=== PATIENT | female | born 1955 | race Caucasian/White ===

== ENCOUNTER 2016-09-28 08:25 | Emergency (ER) | payer MEDICAID ==
[2016-09-28 08:43] VITALS: BMI 38.0
[2016-09-28 08:48] VITALS: TEMP 97.8; O2SAT 97
--- NOTE | 2016-09-28 09:29 | C.PDOC ---
History Of Present Illness 61 y/o female pmhx diabetes, asthma and multiple other problems presents to the ED with complains of pain and swelling to right foot. Pt reports 2 weeks ago, after wearing sneakers she noticed abrasion to top of right foot which gradually worsened, turned into a sore with scab, tenderness and redness. Pt also states she generally doesn't feel well with complains of dry throat. Diabetes uncontrolled despite taking medications. Pt seen by PMD given antibiotics for throat infection. Denies fever, chills, nausea, vomiting, headache, chest pain, SOB or any other complaints. Time Seen by Provider: 09/28/16 09:08 Chief Complaint (Nursing): Lower Extremity Problem/Injury History Per: Patient History/Exam Limitations: no limitations Onset/Duration Of Symptoms: Days Current Symptoms Are (Timing): Worse Severity: Moderate Recent travel outside of the [place]: No Past Medical History Reviewed: Historical Data, Nursing Documentation, Vital Signs Vital Signs: Last Vital Signs Temp 97.8 F 09/28/16 08:43 Pulse 72 09/28/16 10:01 Resp 18 09/28/16 10:01 BP 128/72 09/28/16 10:01 Pulse Ox 97 09/28/16 10:01 - Medical History PMH: Anxiety, Arthritis, Asthma, Diabetes, Gastritis, Hypercholesterolemia Surgical History: Appendectomy - [facility] Procedures ENDOSC POLYPECTOMY OF LG INTEST (02/11/14) ESOPHAGOGASTRODUODENOSCOPY [EGD] W/CLOSED BIOPSY (02/11/14) INJECT/INFUSE NEC (08/27/14) PHYSICAL THERAPY NEC (01/31/14) Family History: States: Unknown Family Hx - Social History Hx Tobacco Use: No Hx Alcohol Use: No Hx Substance Use: No - Immunization History Hx Tetanus Toxoid Vaccination: No Hx Influenza Vaccination: No Hx Pneumococcal Vaccination: No Review Of Systems Except As Marked, All Systems Reviewed And Found Negative. Constitutional: Negative for: Fever, Chills ENT: Positive for: Other (dry throat) Cardiovascular: Negative for: Chest Pain Respiratory: Negative for: Shortness of Breath Gastrointestinal: Negative for: Nausea, Vomiting Musculoskeletal: Positive for: Other (pain and swelling to top of right foot) Neurological: Negative for: Headache Physical Exam - Physical Exam Appears: Non-toxic, No Acute Distress Skin: Warm, Dry, No Rash Head: Atraumatic, Normacephalic Oral Mucosa: Moist Throat: Normal, No Erythema, No Exudate Neck: Normal, Normal ROM, Supple Chest: Symmetrical Cardiovascular: Rhythm Regular, No Murmur Respiratory: Normal Breath Sounds, No Rales, No Rhonchi, No Wheezing Gastrointestinal/Abdominal: Normal Exam, Soft, No Tenderness, Other (obese) Extremity: Normal ROM, Capillary Refill (<2 seconds), Other (Right foot with 1x1 cm round lesion with scab and surrounding erythema and tenderness) Pulses: Left Dorsalis Pedis: Normal, Right Dorsalis Pedis: Normal Neurological/Psych: Oriented x3, Normal Speech, Normal Motor, Normal Sensation ED Course And Treatment O2 Sat by Pulse Oximetry: 97 (room air) Pulse Ox Interpretation: Normal Medical Decision Making Medical Decision Making: Prescribed keflex and instructed patient to follow up with PMD. Disposition Counseled Patient/Family Regarding: Diagnosis, Need For Followup, Rx Given - Disposition Referrals: Roberto Medrano MD [Medical Doctor] - Disposition: HOME/ ROUTINE Disposition Time: 09:29 Condition: GUARDED Prescriptions: Cephalexin [Keflex] 500 mg PO QID #40 capsule Instructions: Diabetic Foot Care (DC) Forms: General Discharge Instructions - POA Present On Arrival: None - Clinical Impression Clinical Impression: Hyperglycemia, Right foot infection - Scribe Statement The provider has reviewed the documentation as recorded by the Daryn Mortensen Provider Attestation: All medical record entries made by the Stefanoibkeeley were at my direction and personally dictated by me. I have reviewed the chart and agree that the record accurately reflects my personal performance of the history, physical exam, medical decision making, and the department course for this patient. I have also personally directed, reviewed, and agree with the discharge instructions and disposition.
[2016-09-28 10:01] VITALS: BP 128/72; PULSE 72; RESP 18
== END 2016-09-28 10:02 | disposition home or self-care (01) ==
LOC: C.ER 08:25
DX: E11.65 Type 2 diabetes mellitus with hyperglycemia (principal); L08.9 Local infection of the skin and subcutaneous tissue, unspecified

== ENCOUNTER 2016-10-24 11:58 | Emergency (ER) | payer MEDICAID ==
[2016-10-24 11:58] VITALS: BMI 38.0
[2016-10-24 12:23] VITALS: BP 123/84; PULSE 81; TEMP 98.2; O2SAT 97
[2016-10-24 13:13] LABS: RBC URINE < 1 /hpf (0-3); URINE BILIRUBIN NEGATIVE (NEGATIVE); URINE BLOOD NEGATIVE (NEGATIVE); URINE COLOR Yellow (YELLOW); URINE GLUCOSE (UA) NORMAL (Normal); URINE KETONE NEGATIVE (NEGATIVE); URINE LEUKOCYTE ESTERASE TRACE Leu/uL (Negative); URINE PROTEIN NEGATIVE (NEGATIVE); URINE UROBILINOGEN NORMAL mg/dL (0.2-1.0); WBC URINE 3 /hpf (0-5)
--- NOTE | 2016-10-24 13:20 | C.PDOC ---
History Of Present Illness 61 y/o female presents to the ED for evaluation of increased urinary frequency which began this morning. Patient is s/p a pelvic ultrasound. Patient notes her symptoms resolved prior to ED arrival. She denies fever, chills, back pain, abdominal pain, dysuria. Time Seen by Provider: 10/24/16 12:41 Chief Complaint (Nursing): Female Genitourinary History Per: Patient History/Exam Limitations: no limitations Onset/Duration Of Symptoms: Hrs Current Symptoms Are (Timing): Better Associated Symptoms: Urinary Symptoms (+urinary frequency ). denies: Fever, Chills, Back Pain Additional History Per: Patient Past Medical History Reviewed: Historical Data, Nursing Documentation, Vital Signs Vital Signs: Last Vital Signs Temp 98.2 F 10/24/16 12:23 Pulse 81 10/24/16 12:23 Resp 18 10/24/16 13:23 BP 123/84 10/24/16 12:23 Pulse Ox 97 10/24/16 16:55 - Medical History PMH: Anxiety, Arthritis, Asthma, Diabetes, Gastritis, Hypercholesterolemia Denies: Chronic Kidney Disease Surgical History: Appendectomy - [facility] Procedures ENDOSC POLYPECTOMY OF LG INTEST (02/11/14) ESOPHAGOGASTRODUODENOSCOPY [EGD] W/CLOSED BIOPSY (02/11/14) INJECT/INFUSE NEC (08/27/14) PHYSICAL THERAPY NEC (01/31/14) Family History: States: Unknown Family Hx - Social History Hx Tobacco Use: No Hx Alcohol Use: No Hx Substance Use: No - Immunization History Hx Tetanus Toxoid Vaccination: No Hx Influenza Vaccination: No Hx Pneumococcal Vaccination: No Review Of Systems Except As Marked, All Systems Reviewed And Found Negative. Constitutional: Negative for: Fever, Chills Gastrointestinal: Negative for: Abdominal Pain Genitourinary: Positive for: Frequency. Negative for: Dysuria Musculoskeletal: Negative for: Back Pain Physical Exam - Physical Exam Appears: Non-toxic, No Acute Distress, Other (+obese) Skin: Normal Color, Warm, Dry Eye(s): bilateral: Normal Inspection Oral Mucosa: Moist Neck: Supple Chest: Symmetrical Cardiovascular: Rhythm Regular Respiratory: Normal Breath Sounds Gastrointestinal/Abdominal: Soft, No Tenderness, No Guarding, No Rebound Back: Normal Inspection Extremity: Normal ROM, Capillary Refill (less than 2 seconds ) Neurological/Psych: Normal Speech, Normal Cognition Gait: Steady ED Course And Treatment - Laboratory Results Urine POC: Negative O2 Sat by Pulse Oximetry: 97 (on RA) Pulse Ox Interpretation: Normal Progress Note: UA ordered and reviewed. Medical Decision Making Medical Decision Making: mild urinary frequency after vaginal US this AM no frequency now, no UTI on UA Disposition Doctor Will See Patient In The: Office Counseled Patient/Family Regarding: Studies Performed, Diagnosis - Disposition Referrals: Michele Medrano MD [Staff Provider] - Disposition: HOME/ ROUTINE Disposition Time: 13:20 Condition: GOOD Additional Instructions: NO UTI today Follow-up with your OBGYN and Dr. Medrano as normal. Instructions: Dysuria (ED) - Clinical Impression Clinical Impression: Urinary frequency - Scribe Statement The provider has reviewed the documentation as recorded by the Scribe (Jessa Medrano) Provider Attestation: All medical record entries made by the Scribe were at my direction and personally dictated by me. I have reviewed the chart and agree that the record accurately reflects my personal performance of the history, physical exam, medical decision making, and the department course for this patient. I have also personally directed, reviewed, and agree with the discharge instructions and disposition.
[2016-10-24 13:24] VITALS: RESP 18
== END 2016-10-24 13:24 | disposition home or self-care (01) ==
LOC: C.ER 11:58
DX: R35.0 Frequency of micturition (principal)

== ENCOUNTER 2017-04-27 06:11 | Day surgery (SDC) | payer MEDICAID ==
[2017-04-27 06:47] VITALS: BMI 37.2
[2017-04-27] MEDS ORDERED: Lactated Ringer's 500 ML IV ONE (08:10)
--- NOTE | 2017-04-27 08:10 | CP.SDSHP ---
Same Day Surgery H & P - History Proposed Procedure: colonsocopy Pre-Op Diagnosis: r bleed - Previous Medical/Surgical History Endocrine/Metabolic: Diabetes - Allergies Allergies: Allergies acetaminophen [From Tylenol-Codeine] Allergy (Verified 10/24/16 12:21) RASH ciprofloxacin [From Cipro] Allergy (Verified 10/24/16 12:21) RASH ciprofloxacin HCl [From Cipro] Allergy (Verified 10/24/16 12:21) RASH codeine phosphate [From Tylenol-Codeine] Allergy (Verified 10/24/16 12:21) RASH epinephrine Allergy (Verified 10/24/16 12:21) RASH iodixanol Allergy (Verified 10/24/16 12:21) RASH naproxen Allergy (Verified 10/24/16 12:21) RASH nitrofurantoin [From Macrobid] Allergy (Verified 10/24/16 12:21) RASH nitrofurantoin macrocrystalline [From Macrobid] Allergy (Verified 10/24/16 12:21 ) RASH oxycodone [From Percocet] Allergy (Verified 04/27/17 06:48) RASH shellfish derived Allergy (Verified 10/24/16 12:21) RASH - Physical Exam Vital Signs: Vital Signs 04/27/17 06:40 Temperature 97.8 F Pulse Rate 67 Respiratory 19 Rate Blood Pressure 138/67 O2 Sat by Pulse 98 Oximetry Mental Status: Alert & Oriented x3 Neuro: WNL Heart: WNL Lungs: WNL GI: WNL - {Optional Preform as Required} Abdomen: WNL - Impression Impression: r bleed Pt. Evaluated Today:Candidate for Anesthesia & Procedure: Yes - Date & Time Date: 04/27/17 Time: 08:00 Short Stay Discharge - Short Stay Discharge Admitting Diagnosis/Reason for Visit: RECTAL BLEEDING Disposition: HOME/ ROUTINE
[2017-04-27] MEDS ORDERED: Propofol 10 mg/ml Inj (20 ML) ONE ×2 (08:12→08:26)
[2017-04-27] MEDS ORDERED: Lidocaine Hydrochloride 10 ML INJ ONE (08:14)
[2017-04-27] MEDS ORDERED: Albuterol HFA 90 mcg/actuation (8 g) ONE (08:14)
[2017-04-27 08:48] VITALS: TEMP 98.3
[2017-04-27 09:33] VITALS: BP 126/43; PULSE 64; RESP 13; O2SAT 99
== END 2017-04-27 09:42 | disposition home or self-care (01) ==
LOC: C.ENDO 06:11
PROVIDERS: ATTEND Internal Medicine Gastroenterology
DX: K57.90 Diverticulosis of intestine, part unspecified, without perforation or abscess without bleeding (principal); K64.8 Other hemorrhoids
CPT/HCPCS: 45378; 82948; J2001; J2704; J7120

== ENCOUNTER 2017-12-20 10:16 | Emergency (ER) | payer MEDICARE, MEDICAID ==
[2017-12-20 10:16] VITALS: BMI 37.2
[2017-12-20 10:26] VITALS: BP 124/83; PULSE 74; RESP 20; TEMP 98.4; O2SAT 96
--- NOTE | 2017-12-20 11:02 | C.PDOC ---
History Of Present Illness 62 y/o female presents to ED with complaints of dental pain radiating to face for 2-3 days. Patient denies fever, chills, drainage, headache or any other complaints at this time. Time Seen by Provider: 12/20/17 10:29 Chief Complaint (Nursing): Dental Pain History Per: Patient History/Exam Limitations: no limitations Onset/Duration Of Symptoms: Days Current Symptoms Are (Timing): Still Present Quality: Positive for: "Pain" Past Medical History Reviewed: Historical Data, Nursing Documentation, Vital Signs Vital Signs: Last Vital Signs Temp 98.4 F 12/20/17 10:25 Pulse 74 12/20/17 10:25 Resp 20 12/20/17 10:25 BP 124/83 12/20/17 10:25 Pulse Ox 96 12/20/17 11:09 - Medical History PMH: Anxiety, Arthritis, Asthma, Depression, Diabetes, Gastritis, Hypercholesterolemia, Kidney Stones, Chronic Kidney Disease Surgical History: Appendectomy (30 YEARS AGO) - [facility] Procedures ENDOSC POLYPECTOMY OF LG INTEST (02/11/14) ESOPHAGOGASTRODUODENOSCOPY [EGD] W/CLOSED BIOPSY (02/11/14) INJECT/INFUSE NEC (08/27/14) PHYSICAL THERAPY NEC (01/31/14) Family History: States: No Known Family Hx - Social History Hx Tobacco Use: No Hx Alcohol Use: No Hx Substance Use: No - Immunization History Hx Tetanus Toxoid Vaccination: No Hx Influenza Vaccination: No Hx Pneumococcal Vaccination: No Review Of Systems Constitutional: Negative for: Fever, Chills ENT: Positive for: Mouth Pain, Mouth Swelling. Negative for: Throat Pain Skin: Negative for: Rash Neurological: Negative for: Headache Physical Exam - Physical Exam Appears: Non-toxic, No Acute Distress Skin: Warm, Dry, No Rash Head: Tenderness (right maxillary sinus) Eye(s): bilateral: Normal Inspection Ear(s): Bilateral: Normal Oral Mucosa: Moist Throat: Normal, No Erythema, No Exudate Pulses: Left Radial: Normal Neurological/Psych: Oriented x3, Normal Speech ED Course And Treatment O2 Sat by Pulse Oximetry: 96 (RA) Pulse Ox Interpretation: Normal Disposition - Disposition Referrals: [facility] Rodrigo Req, [Non-Staff] - Disposition: HOME/ ROUTINE Disposition Time: 10:45 Condition: GOOD Additional Instructions: KRISTEN VORA, thank you for letting us take care of you today. Your provider was Amadeo Levine DO and you were treated for SWOLLEN FACE/TOOTH PAIN. The emergency medical care you received today was directed at your acute symptoms. If you were prescribed any medication, please fill it and take as directed. It may take several days for your symptoms to resolve. Return to the Emergency Department if your symptoms worsen, do not improve, or if you have any other problems. Please contact your doctor or call one of the physicians/clinics you have been referred to that are listed on the Patient Visit Information form that is included in your discharge packet. Bring any paperwork you were given at discharge with you along with any medications you are taking to your follow up visit. Our treatment cannot replace ongoing medical care by a primary care provider outside of the emergency department. Thank you for allowing the [facility] team to be part of your care today. Follow up with your dentist as scheduled for re-evaluation and further management. Prescriptions: Amoxicillin/Clavulanate [Augmentin 875 MG-125 MG] 1 tab PO BID #20 tab Ibuprofen [Motrin] 600 mg PO Q6 PRN #20 tab PRN Reason: Pain, Moderate (4-7) Instructions: Sinusitis, Adult (DC) Forms: [employer] (German) - Clinical Impression Clinical Impression: Sinusitis - Scribe Statement The provider has reviewed the documentation as recorded by the Stefanoibkeeley Ponce All medical record entries made by the Stefanoibe were at my direction and personally dictated by me. I have reviewed the chart and agree that the record accurately reflects my personal performance of the history, physical exam, medical decision making, and the department course for this patient. I have also personally directed, reviewed, and agree with the discharge instructions and disposition.
== END 2017-12-20 11:11 | disposition home or self-care (01) ==
LOC: C.ER 10:16
DX: J32.9 Chronic sinusitis, unspecified (principal)